=== PATIENT | male | born 2000 | race Caucasian/White ===

== ENCOUNTER 2020-07-09 13:23 | Emergency (ER) | payer MEDICAID, OTHER ==
[2020-07-09 13:53] VITALS: BP 138/78; PULSE 78
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
== END 2020-07-09 14:00 | disposition home or self-care (01) ==
LOC: LL.ED 13:23
DX: M54.2 Cervicalgia (principal); F41.9 Anxiety disorder, unspecified; F32.9 Major depressive disorder, single episode, unspecified; Z88.5 Allergy status to narcotic agent; Z79.899 Other long term (current) drug therapy
CPT/HCPCS: 99283